=== PATIENT | male | born 1995 | race Caucasian/White ===

== ENCOUNTER 2017-04-02 17:18 | Emergency (ER) | payer OTHER ==
[2017-04-02 17:36] VITALS: TEMP 98.4; O2SAT 95
--- NOTE | 2017-04-02 18:48 | EDPHY ---
H & P Stated Complaint: hasn't slept in 6 nights Time Seen by Provider: 04/02/17 17:39 HPI/ROS: Chief Complaint: Difficulty sleeping HPI: 21-year-old male states he has been with sleeve only 1 night this week. Patient states that he attributes this to his heavy marijuana use. Patient states he uses at least 2 bowls a day. He states that he feels that when he uses marijuana he is unable to sleep. He has had difficulties with insomnia in the past. He last used marijuana 4 days ago. He did get some sleep 2 days ago but none since. Also did sleep for 2 days before that. He does have a history of anxiety and depression but denies any depression. He is not suicidal. He has not been having auditory or visual hallucinations. Has been taking larger dose of his gabapentin for anxiety recently as well. Denies any fevers or chills. No chest pain or palpitations. No nausea or vomiting. ROS: 10 point Review of Systems is negative except as noted in the HPI. PMH: 2 reds, depression, anxiety Medications: Latuda, gabapentin new line allergies: No known drug allergies Social History: Positive smoking, no alcohol, heavy marijuana use Family History: non-contributory Physical Exam: Gen: Awake, Alert, No Distress HEENT: Nose: no rhinorrhea Eyes: PERRLA, EOMI Mouth: Moist mucosa Neck: Supple, no JVD Chest: nontender, lungs clear to auscultation Heart: S1, S2 normal, no murmur Abd: Soft, non-tender, no guarding Back: no CVA tenderness, no midline tenderness Ext: no edema, non-tender Skin: no rash Neuro: CN II-XII intact, Sensation grossly intact, Strength 5/5 in bilateral upper and lower extremities - Personal History Current Tetanus Diphtheria and Acellular Pertussis (TDAP): Yes - Medical/Surgical History Hx Asthma: No Hx Chronic Respiratory Disease: No Hx Diabetes: No Hx Cardiac Disease: No Hx Renal Disease: No Hx Cirrhosis: No Hx Alcoholism: No Hx HIV/AIDS: No Hx Splenectomy or Spleen Trauma: No Other PMH: depression, tourettes - Social History Smoking Status: Current every day smoker Constitutional: Initial Vital Signs Temperature (C) 36.9 C 04/02/17 17:32 Heart Rate 109 H 04/02/17 17:32 Respiratory Rate 16 04/02/17 17:32 Blood Pressure 133/89 H 04/02/17 17:32 O2 Sat (%) 95 04/02/17 17:32 O2 Delivery Mode Room Air Allergies/Adverse Reactions: No Known Allergies Allergy (Unverified 07/29/13 14:45) Home Medications: Medication Instructions Recorded Neurontin Unkn Amt 07/29/13 Latuda 04/02/17 Zolpidem Tartrate [Ambien 10 mg] 10 mg PO HS PRN #10 tablet 04/02/17 Medical Decision Making ED Course/Re-evaluation: Patient here with insomnia likely secondary to his substance use. Will prescribe him for a few Ambien instructed to follow up with primary care physician early next week. He is stating is not believed to ambulate will work for him is asking for something stronger. I told him that I do not believe benzodiazepines or other medications are indicated at this time. I feel that he should try course of Ambien 1st before it is any other medications. Patient was wondering if Zyprexa might be an alternative. I told him that I do not feel this is appropriate as a sleep aid and that he needs to follow up with Psychiatry for this. Will write for some Ambien here and discharged with follow -up as stated. Departure - Departure Disposition: Home, Routine, Self-Care Clinical Impression: Insomnia Condition: Good Instructions: Insomnia (ED) Additional Instructions: Follow up with primary care physician in 2-3 days. I would also follow up with [facility] return treatment of your depression and anxiety. Referrals: ANABELL GRAVES [Primary Care Provider] - As per Instructions Prescriptions: Zolpidem Tartrate [Ambien 10 mg] 10 mg PO HS PRN #10 tablet PRN Reason: Sleep/Insomnia
[2017-04-02 19:08] VITALS: BP 136/85; PULSE 90; RESP 18
== END 2017-04-02 19:08 | disposition home or self-care (01) ==
DX: G47.00 Insomnia, unspecified (principal); F17.200 Nicotine dependence, unspecified, uncomplicated

== ENCOUNTER 2017-05-20 19:26 | Inpatient (IN) | payer OTHER ==
--- NOTE | 2017-05-20 19:34 | EDPHY ---
H & P HPI/ROS: CHIEF COMPLAINT: Suicidal ideation, arm laceration HISTORY OF PRESENT ILLNESS: Patient reports that he is "in too much emotional pain, and I want to . I want to go home to my family." He reports feeling this way for years. He reports attempting to harm himself this evening by getting into the shower with a kitchen knife and stabbing his left forearm. It is minimally painful. He said that prior to doing this he contacted his ex- girlfriend informing her of his plan. She apparently contacted his wildlife management professor and/or 911. EMS and [employer] responded to the patient's residence. He is transported to our facility by EMS. [employer] are completing an M1 hold for the patient. He will not provide any modifying factors for this. He says that he has felt this way for years and has voluntarily admitted himself to psychiatric care in the past. He says that he has an outpatient therapist. He will not provide any further information regarding his history of present illness. pelvic illness. M1: [employer] at 7:40 p.m. REVIEW OF SYSTEMS: Ten systems reviewed and are negative unless otherwise noted in the HPI PAST MEDICAL HISTORY: Reports previous suicide ideation and voluntary psychiatric admission SOCIAL HISTORY: Will not discuss FAMILY HISTORY: Noncontributory EXAMINATION General Appearance: Alert, no distress, tearful Head: normocephalic, atraumatic Eyes: Pupils equal and round, no conjunctival pallor or injection ENT, Mouth: Mucous membranes moist Neck: Normal inspection, supple, non-tender Respiratory: Lungs are clear to auscultation. No wheezing, rhonchi or crackles Cardiovascular: Regular rate and rhythm. No murmur. Pulses intact distally in symmetrically. Radial pulses 2+. DP pulses 2+. Gastrointestinal: Abdomen is soft and nontender Back: non-tender, no bony abnormalities Neurological: GCS 15. A&O, nonfocal, normal gait Skin: Warm and dry, no rash. There is a 2 cm superficial laceration on the distal 3rd of the left forearm, volar. This does not compromise the vascular bundle or the anterior compartment. There is no exposure of the underlying tendon, muscle or fascia. Neurovascular intact distally. Extremities: Mild tenderness over the area laceration. Full flexion extension of the wrist and fingers without deficit. Psychiatric: Mood and affect normal DIFFERENTIAL DIAGNOSES: Including but not limited to suicidal ideation, suicide attempt, depression, mood disorder, laceration MDM: 7:30 p.m. Reports of suicidal ideation. The patient is currently not talking. Continue to obtain his vitals and checked him and I will attempt to re-evaluate him. 7:55 p.m. I have evaluated the patient. He reports suicide ideation. He has a plan of cutting himself. He attempted to cut his left forearm today in the shower. He then was evaluated by [place] [employer] in EMS. He admits to this and does not want any help. 8:30 p.m. Laceration has been irrigated and repaired without complication. Laboratory studies are pending 9:50 p.m. Patient is currently being evaluated by [facility]. 11:30 p.m. Patient recently requested his nighttime medications. I did verbalize that he may take these. I am still awaiting information regarding his mental health evaluation. 12:30 a.m. Case discussed with Tierra with [facility]. She informed me that the patient has been accepted to [address] [place] [address] Wh[address]ide. They are still awaiting the final approval for transfer and nurse to nurse report. Patient remains calm and cooperative. He has received his nighttime dose of Zyprexa. 12:57 a.m. Patient has officially been accepted to [address] [place] [address] for inpatient psychiatric care. He has been accepted by Dr. Whiteside. Nurse's currently given report to the receiving nurse at [address] [place] [address] facility. PROCEDURE: Laceration repair Consent: Verbal Location: Left forearm, volar Length of repair: 2 cm Complexity: Simple Layer involvement: Single Anesthesia: Local, 1% lidocaine plain. 5 mL Irrigation: Extensive Debridement: None Procedure description: Following good anesthesia, the wound was copiously irrigated. Wound bed was explored and there is no foreign body noted. There is no compromise of the anterior compartment. There is no exposure of the fascia, muscle or flexor apparatus. Wound borders were approximated well with good hemostasis. Tolerated well without complication. Suture/Staple material: Wound care: Routine as discussed Suture/Staple removal: 7 Days SUPERVISION: Patient was evaluated in conjunction with the supervising physician. Please see their note for details. Source: Patient, RN/MD - Medical/Surgical History Hx Asthma: No Hx Chronic Respiratory Disease: No Hx Diabetes: No Hx Cardiac Disease: No Hx Renal Disease: No Hx Cirrhosis: No Hx Alcoholism: No Hx HIV/AIDS: No Hx Splenectomy or Spleen Trauma: No Other PMH: depression, tourettes - Social History Smoking Status: Current every day smoker Constitutional: Initial Vital Signs Temperature (C) 98.2 F 05/20/17 23:50 Heart Rate 95 05/20/17 23:50 Respiratory Rate 20 05/20/17 23:50 Blood Pressure 107/67 05/20/17 23:50 O2 Sat (%) 94 05/20/17 23:50 O2 Delivery Mode Room Air Allergies/Adverse Reactions: No Known Allergies Allergy (Unverified 07/29/13 14:45) Home Medications: Medication Instructions Recorded Neurontin Unkn Amt 07/29/13 Latuda 04/02/17 Zolpidem Tartrate [Ambien 10 mg] 10 mg PO HS PRN #10 tablet 04/02/17 Medical Decision Making - Data Points Laboratory Results: Laboratory Results 05/20/17 19:45 05/20/17 19:45 05/20/17 05/20/17 05/20/17 20:30 19:45 19:45 WBC RBC Hgb Hct MCV MCH MCHC RDW Plt Count MPV Neut % (Auto) Lymph % (Auto) Pine % (Auto) Eos % (Auto) Baso % (Auto) Nucleat RBC Rel Count Absolute Neuts (auto) Absolute Lymphs (auto) Absolute Monos (auto) Absolute Eos (auto) Absolute Basos (auto) Absolute Nucleated RBC Immature Gran % Immature Gran # Sodium 142 mEq/L mEq/L (134-144) Potassium 4.0 mEq/L mEq/L (3.5-5.2) Chloride 105 mEq/L mEq/L (97-110) Carbon Dioxide 20 mEq/l L mEq/l (22-31) Anion Gap 17 mEq/L H mEq/L (8-16) BUN 12 mg/dL mg/dL (7-23) Creatinine 0.9 mg/dL mg/dL (0.7-1.3) Estimated GFR > 60 Glucose 92 mg/dL mg/dL (70-100) Calcium 10.3 mg/dL mg/dL (8.5-10.4) Salicylates < 1.0 mg/dL L mg/dL (2.0-20.0) Urine Opiates Screen NEGATIVE (NEGATIVE) Acetaminophen < 10 mcg/mL L mcg/mL (10.0-30.0) Urine Barbiturates NEGATIVE (NEGATIVE) Phenytoin < 3.0 mcg/mL L mcg/mL (10.0-20.0) Valproic Acid 10.1 mcg/mL L mcg/mL (50.0-150.0) Ur Phencyclidine Scrn NEGATIVE (NEGATIVE) Ur Amphetamine Screen NEGATIVE (NEGATIVE) U Benzodiazepines Scrn NEGATIVE (NEGATIVE) Urine Cocaine Screen NEGATIVE (NEGATIVE) U Marijuana (THC) Screen NEGATIVE (NEGATIVE) Ethyl Alcohol < 10 mg/dL mg/dL (0-10) 05/20/17 19:45 WBC 14.68 10^3/uL H 10^3/uL (3.80-9.50) RBC 6.09 10^6/uL 10^6/uL (4.40-6.38) Hgb 18.3 g/dL H g/dL (13.7-17.5) Hct 50.2 % % (40.0-51.0) MCV 82.4 fL fL (81.5-99.8) MCH 30.0 pg pg (27.9-34.1) MCHC 36.5 g/dL g/dL (32.4-36.7) RDW 11.9 % % (11.5-15.2) Plt Count 251 10^3/uL 10^3/uL (150-400) MPV 10.7 fL fL (8.7-11.7) Neut % (Auto) 84.8 % H % (39.3-74.2) Lymph % (Auto) 9.3 % L % (15.0-45.0) Pine % (Auto) 5.3 % % (4.5-13.0) Eos % (Auto) 0.0 % L % (0.6-7.6) Baso % (Auto) 0.1 % L % (0.3-1.7) Nucleat RBC Rel Count 0.0 % % (0.0-0.2) Absolute Neuts (auto) 12.44 10^3/uL H 10^3/uL (1.70-6.50) Absolute Lymphs (auto) 1.37 10^3/uL 10^3/uL (1.00-3.00) Absolute Monos (auto) 0.78 10^3/uL 10^3/uL (0.30-0.80) Absolute Eos (auto) 0.00 10^3/uL L 10^3/uL (0.03-0.40) Absolute Basos (auto) 0.02 10^3/uL 10^3/uL (0.02-0.10) Absolute Nucleated RBC 0.00 10^3/uL 10^3/uL (0-0.01) Immature Gran % 0.5 % % (0.0-1.1) Immature Gran # 0.07 10^3/uL 10^3/uL (0.00-0.10) Sodium Potassium Chloride Carbon Dioxide Anion Gap BUN Creatinine Estimated GFR Glucose Calcium Salicylates Urine Opiates Screen Acetaminophen Urine Barbiturates Phenytoin Valproic Acid Ur Phencyclidine Scrn Ur Amphetamine Screen U Benzodiazepines Scrn Urine Cocaine Screen U Marijuana (THC) Screen Ethyl Alcohol Medications Given: Discontinued Medications Divalproex Sodium (Depakote) 250 mg PO EDNOW ONE Stop: 05/20/17 22:40 Last Admin: 05/20/17 23:00 Dose: 250 mg Divalproex Sodium (Depakote) 250 mg PO EDNOW ONE Stop: 05/20/17 22:46 Last Admin: 05/20/17 22:46 Dose: Not Given Olanzapine (Olanzapine) 15 mg PO ONCE ONE Stop: 05/20/17 22:39 Last Admin: 05/20/17 22:45 Dose: 15 mg Departure - Departure Disposition: [facility] IP Clinical Impression: Suicidal ideation, Suicide attempt by method other than substance overdose Laceration of forearm without complication Qualifiers: Encounter type: initial encounter Laterality: left Qualified Code(s): S51.812A - Laceration without foreign body of left forearm, initial encounter Condition: Good Referrals: Patient,NotPresent [Unknown] - As per Instructions
[2017-05-20 20:14] LABS: % IMMATURE GRANULYOCYTES 0.5 % (0.0-1.1); ABSOLUTE IMMATURE GRANULOCYTES 0.07 10^3/uL (0.00-0.10); ADD DIFF? NO; ADD MORPH? NO; ADD SCAN? NO; ATYPICAL LYMPHOCYTE FLAG 0 (0-99); FRAGMENT RBC FLAG 0 (0-99); HEMATOCRIT 50.2 % (40.0-51.0); HEMOGLOBIN 18.3 g/dL (13.7-17.5); LEFT SHIFT FLG 0 (0-99); LIPEMIA HEMOLYSIS FLAG 90 (0-99); MEAN CELL HEMOGLOBIN CONCENTR. 36.5 g/dL (32.4-36.7); MEAN CELL VOLUME 82.4 fL (81.5-99.8); MEAN PLATELET VOLUME 10.7 fL (8.7-11.7); PLATELET CLUMPS FLAG 0 (0-99); PLATELET COUNT 251 10^3/uL (150-400); RED BLOOD CELL COUNT 6.09 10^6/uL (4.40-6.38); RED CELL DISTRIBUTION WIDTH 11.9 % (11.5-15.2)
[2017-05-20 20:22] LABS: ANION GAP 17 mEq/L (8-16); CALCIUM 10.3 mg/dL (8.5-10.4); CARBON DIOXIDE 20 mEq/l (22-31); CHLORIDE 105 mEq/L (97-110); CREATININE 0.9 mg/dL (0.7-1.3); ETHANOL SERUM < 10 mg/dL (0-10); GLOMERULAR FILTRATION RATE > 60; GLUCOSE 92 mg/dL (70-100); SALICYLATE < 1.0 mg/dL (2.0-20.0); SODIUM 142 mEq/L (134-144)
[2017-05-20] MEDS ORDERED: OLANZapine 10 MG/2 ML VIAL IM ONE (21:56)
[2017-05-20] MEDS ORDERED: OLANZapine 5 MG TAB ONE (22:36)
[2017-05-20] MEDS ORDERED: OLANZapine 5 MG TAB PO ONE (22:38)
[2017-05-20] MEDS ORDERED: DIVALPROEX NA 500 MG TAB PO ONE (22:39)
[2017-05-20] MEDS ORDERED: DIVALPROEX NA 250 MG TAB PO ONE (22:45)
[2017-05-21] MEDS ORDERED: ACETAMINOPHEN 325 MG TAB PO PRN (02:15)
[2017-05-21] MEDS ORDERED: MAGNESIUM HYDROXIDE 30 ML UDCUP PO PRN (02:15)
[2017-05-21] MEDS ORDERED: MAG HYDROX/AL HYDROX/SIMETH 30 ML UDCUP PO PRN (02:15)
[2017-05-21] MEDS ORDERED: LORazepam 0.5 MG TAB PO PRN (02:15)
[2017-05-21] MEDS ORDERED: OLANZapine 5 MG TAB PO PRN ×2 (02:16→12:53)
[2017-05-21] MEDS ORDERED: GABAPENTIN 100 MG CAP PO ONE (12:51)
[2017-05-21] MEDS ORDERED: GABAPENTIN 400 MG CAP PO ONE (14:15)
[2017-05-21] MEDS: LORazepam 0.5 MG TAB PO PRN ×2 (14:34→21:39)
[2017-05-21] MEDS: NICOTINE POLACRILEX 2 MG GUM B PRN ×4 (14:35→20:50)
--- NOTE | 2017-05-21 15:52 | BAPA ---
[f rep st] ADMISSION PSYCHIATRIC ASSESSMENT DATE OF SERVICE: 05/21/2017 CHIEF COMPLAINT: "I've been having a lot of emotional problems. I hate myself." HISTORY OF PRESENT ILLNESS: Patient is a 21-year-old single student, man, brought initial ly to [facility] by ambulance after the patient informed his parents, director life sciences and therapist he had cu t himself with a kitchen knife. [employer] was called to do a welfare check. An officer placed him on an M1 hold which noted patient "reportedly texted his director life sciences threatening to cut himself with a knif e. We (the police) contacted the patient inside the house. He had sustained a knife wound to the i nside of his left wrist. The patient said he cut himself with a kitchen knife." Patient reported " I had a suicidal episode today. I have been struggling, not with a specific mental health issue, ju st my own set of complexes which have been at a low vibration. Today I thought to myself, why do th is another moment. I can get high and kill myself. I wrote a note explaining I am in a lot of pain . Recently the pain is due to a breakup but it was already bad. The breakup exacerbated the pain. We broke up 3 months ago and she is already seeing another vic. I inflamed my ability to attempt s uicide by looking at social media. I smoked a good share of marijuana, got in the shower and cut my self with a kitchen knife. I talked to my ex which made it worse and she thought it was for manipul ation. I told my parents, director life sciences and therapist I cut myself. Dad called and I had a huge break down and sort of stopped because I didn't have the courage to continue. It is the fractal fucking p erspective of taking my life when all I know is life and that I am alive. I am alive in the world a nd this kept me holding on even though I wished I were . I had a hard time before the breakup d ue to trauma in the relationship. There were patterns of dependency on weed and cigarettes. For a long long time I have been totally miserable. There has been a giant sleeping bear on the panic but ton. It activated depression. I do not have mood swings. I just hold on strong to the pain and martinez ve been tortured since I was 2 years old. Early on I had panic attacks, anxiety, and dark periods. This was through middle school. Now it is the emotion of pain, not really even depression. It is not something that is usual. It is restless, agonizing pain." PAST PSYCHIATRIC HISTORY: Patient states that he has had emotional pain since he was 2 years old. He states that his childhood was "rough, but only on the inside, the circumstances were good." He s ays that he had a lot of "anger and torment, I hated myself and was incredibly socially anxious." Clive is first contact with mental health providers was in 2012. He was living in [place], [place], and he was doing residential treatment through [facility] for approximately 10 days and then he became lira icidal and he was admitted to [facility]. When he was discharged from [facility] he says that his parents sent him to a residential treatment facility called [facility] in [place] where he stayed for about 5 months and then he went to a stepdown program [facility] in [place], [place], where he lived for about 6 months. He says after he g ot out of residential treatment he went to [facility] and lived for approximately a year. He said he wa s a student enrolled in different programs in [place]. He was seeing a psychiatrist there. At that time, he was prescribed Wellbutrin, Prozac and Zyprexa but he cannot remember what the specific symp toms were that he was taking the medications for. He says that when he came back to [place] in [place], he went to [facility] in [place], [place], to try to finish getting his undergr aduate degree but says that he was smoking a lot of weed and drinking a lot and that he was not doin g well in school and his parents decided they did not want to continue to pay for his tuition so he moved back to [facility] where his family lives and where he grew up and he got involved wit clive an ex girlfriend and they decided to move to [place], [place], together. He says that they went to [place], [place], and he says that he had one psychiatric episode where he reported experiencing "odd sy mptoms." He said that he was hospitalized in the psychiatric [facility] for 3 days. He said that the odd symptoms he was experiencing were that he was "meditating strangely while he was high on marijuana. " Patient states that he was having "energetic pains in my solar plexus." Patient admits that he w as continuing to smoke pot daily and in quite large amounts and that he was drinking "a lot." Laineyjesika emilee then says that he and his girlfriend moved back to [place], [place], where they lived for several mo nths until they both decided to move to [place], [place], in September of 2016. He said shortly aft er they arrived in [place], [place], he and his girlfriend . He says that this has been o ne of the biggest sources of "emotional pain for a long time." Patient started seeing a therapist padilla coffman he had formerly met at [facility], who he now sees as a private therapist and then he a lso started seeing Amadou Munoz who is his director life sciences and he started seeing Dr. Laurence Thornton and that she has been prescribing for him for approximately the last 5 months. He says that when clive canchola arrived in [place], [place], he was on Risperdal prescribed by his psychiatrist in [facility] . He said that he cannot remember why he was taking the Risperdal but said that he felt like it "st opped working." Dr. Thornotn started him on Depakote and Zyprexa. When MD asks the patient why he t akes those medications, patient says "its for sleep." MD explained that those are both mood stabili zers and that one is an antipsychotic and went through in great detail the risks, benefits and side effects of these medications, including the very serious side effects including hepatic failure, agr anulocytosis, neutropenia as well as the second generation atypical antipsychotic can cause cardiac arrhythmias as well as abnormal involuntary muscle movements, EPS symptoms including tardive dyskine jovany, and MD explained that those were medications that were used for people with serious mental illn ess including bipolar disorder and psychotic disorders including schizophrenia and schizoaffective d isorder. The patient adamantly denied that he had any of those conditions. Denied that he had ever experienced a manic episode. Denied that he had ever been psychotic except when high on marijuana, he denied ever having hallucinations. He denied paranoia except when smoking pot and he denied imp aired reality testing or extreme disorganized thinking. He insisted that he only took those medicat ions for sleep even though he is on a fairly high dose of Zyprexa. He takes 15 mg of Zyprexa every night to go to sleep. He also says that he takes 3000 mg of Neurontin all at the same time. When Eva Goodman explained that that is not typically how that medication is prescribed and said that there are praveen e risks involved with taking such high doses of the medication, patient states that that does not eliana ther him and he said "I need that medication for my anxiety." Patient has been on those medications for at least the last several months and denies that there have been any recent medication changes. MD explained to patient that Neurontin can be used off label for insomnia but that the max recomme nded daily dose is 1800 mg. Patient seemed not to be surprised by this information but denied that he had any concerns and stated that these medications are helpful for him and he wanted to continue on his current outpatient regimen even though MD expressed some reservations both about their effect iveness given the symptomatology that the patient describes as well as the severe side effects and r isks of adverse reactions. Patient denies any prior history of suicide attempts. He states that he has had thoughts in the past but he states he never acted on them. He said that the first time he had ever actually followed through on one of his thoughts was the evening prior to admission when he did make a superficial laceration on his wrist which required 3 sutures. Patient says that he woul d not have had the courage to go through with it if he had not been high at the time. ALLERGIES: The patient states that he has no known drug allergies. CURRENT MEDICATIONS: Include Depakote 250 mg p.o. q.h.s., patient states for insomnia. Zyprexa 15 mg p.o. q.h.s., patient states for insomnia. Neurontin, patient states that he takes 5 tablets of 6 00 mg all at the same time daily in the a.m. for anxiety. PAST MEDICAL HISTORY AND SURGICAL HISTORY: Patient told TLC flare maker that he has had 2 spleen lace rations; one occurred in 2008 and the other occurred in 2010. Patient denied having any prior medic al history or surgical procedures to the ED MD and he also denied any past medical history to the ps ychiatrist. He denied any history of concussions or TBI and said that he had his wisdom teeth taken out but no other surgical procedures. SOCIAL HISTORY: Patient lives in his own apartment here in [place]. He states that his girlfriend who he broke up with several months ago also lives here in [place] but that they have not been in co ntact he said since he texted her last night to let her know that he was going to cut himself. His parents live in [facility] [place] [facility] [place]. 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 SUBSTANCE USE HISTORY: Patient reports that his first use of alcohol and marijuana was around the a ge of 13 or 14 years old. He said that he started smoking pot daily in 2012, and he states that he would smoke approximately 2 grams a week. He states that he used to abuse Adderall for approximatel y 3 years between 2011 and 2014. He took it to get high. He reports that he also started drinking when he was 13 years old. He said that he started drinking heavily around 2011, 2012 and he says th at he used to drink "a lot" but he would not give any specific amounts or frequency. He said that clive canchola has stopped drinking for about the last 1 to 2 years but states that on occasion he has been drunk during that time so it is not clear what he means when he says that he quit. FAMILY HISTORY: Patient denies any family history of mental illness. He also denies any awareness of any substance abuse issues in his family. ADMISSION LABS: On admission, the patient had a white cell count of 14.68, a hemoglobin 18.3, hemat ocrit was 50.2, platelet count was 251. His sodium level was 142, potassium was 4.0, chloride was 1 05, BUN was 12, creatinine was 0.9. His urine drug screen was negative for all drugs of abuse. His alcohol level was less than 10. His Depakote level was 10.1 which would be expected to be low sinc e he is on such a low dose of medication, it is not really therapeutic. He states he only takes the medication for insomnia anyway. His acetaminophen and salicylate levels were undetectable. MENTAL STATUS EXAMINATION: This is an overweight male lying in bed in hospital scrubs. He is sligh tly disheveled. His hair is unkempt and he has a several day growth of feliz. He interacts appropr iately with the examiner. He is somewhat guarded at first. He seems very calm and placid lying in bed. He is not restless or fidgeting even though later on he states that he is feeling anxious and wants additional medications and asked for benzodiazepines by request although he gives no signs or symptoms outwardly observable of being anxious in any way, shape or form. Patient's affect is flat. His mood he says is "okay" although he says recently he has been in a lot of "emotional pain." Hi s thought process is linear and goal directed. His thought content: Patient denies any auditory an d visual hallucinations. There is no evidence of paranoia or delusions. There are no evident signs or symptoms of psychosis. He denies any thoughts, plans, or intent to hurt himself or harm anyone else at the current time. He is alert and oriented x4. His intellect is average based upon his edu cational history as well as his fund of knowledge and his vocabulary. His insight and judgment are both fair. IMPRESSION: This is a 21-year-old man with an extensive psychiatric history of long-term residential treatment for a combination it sounds like of substance use disorder issues as well as a n inability to function. His inability to function does not seem to be directly attributable to any psychotic disorder. He denies and does not report any signs or symptoms of having had a manic epis ode in the past. He does seem to be chronically dysthymic, displeased with himself. He admits "I h ate myself." He also says he has lots of "complexes" and unresolved issues that seem to stem from h is childhood and he does seem to have failure to accomplish his goals. He has struggled to complete his undergraduate degree and he seems also to have suffered consequences of prolonged substance use which have both impaired his ability to perform academically as well as interfered with his ability to maintain social relationships. He admits that he is socially awkward and somewhat developmental ly delayed in terms of his social and emotional development. He has trouble interacting with peers and maintaining relationships. It seems that these are more personality traits than they are signs or symptoms of a chronic severe mental illness. Patient does have a significant substance use histo ry as noted previously. DIAGNOSES: 1. Dysthymia. 2. Substance-induced mood disorder. 3. Cannabis use disorder, severe, dependence. 4. Alcohol use disorder, severe, dependence. 5. Psychosocial issues include strained relationship with parents, recent breakup with his girlfrie nd which he says continues to be "emotionally painful for him," failure to perform well in school, f inancial problems. He is being supported by his parents. He is unemployed. He is socially isolate d and has a limited support network. PLAN: 1. Admit to the behavioral health services inpatient unit on an M1 hold. 2. Monitor closely for safety and on suicide precautions. 3. Will continue patient's outpatient medication regimen despite MD's reservations. This MD has ex plained the risks, benefits and side effects including the long-term potential adverse effects of us ing Depakote and Zyprexa, particularly since the patient states that he is only taking them for inso mnia. MD has explained that he does not think that the benefit of taking those medications warrants the risks involved but patient states that he understands the risks and is willing to take those me dications and states that they have been helpful for him in the past and he wants to continue on his current regimen. This MD since we do not have the single daily dose version of gabapentin, I will prescribe the immediate release version which is normally prescribed 3 times a day even though the p atient takes 5 pills once daily. Given our formulary, I will change that to 800 mg p.o. t.i.d. and he can resume the 3000 mg dose that he takes after discharge although MD has strongly encouraged him to follow the appropriate FDA guidelines as it seems that he is being prescribed this medication at supratherapeutic doses and for off label uses. Patient said that he would take that up with his ou tpatient psychiatrist, Dr. Thornton, after he is discharged. 4. Patient will engage in individual, group and milieu psychotherapies. 5. Estimated length of stay is 3 to 5 days. 6. guest relations coordinator will meet with the patient and attempt to reconnect him with his outpatient pro viders who are extremely invested in the patient's treatment. Both his director life sciences as well as his in dividual therapist came to meet with him when he was in the emergency department. Patient's outpati ent psychiatrist, Dr. Thornton, is out of town for approximately 2 weeks but Sebastian Laird and Amadou Zabala son have both said they would be willing to work the patient into their schedule as soon as he is di scharged. /[id number]/MODL
[2017-05-21] MEDS: GABAPENTIN 400 MG CAP PO SCH ×2 (16:20→21:40)
[2017-05-21] MEDS: OLANZapine 10 MG TAB PO SCH (21:39)
[2017-05-21] MEDS: DIVALPROEX NA 250 MG TAB PO SCH (21:40)
--- NOTE | 2017-05-21 21:57 | BCON ---
[f rep st] BEHAVIORAL HEALTH CONSULTATION DATE OF CONSULTATION: 05/21/2017 REFERRING PHYSICIAN: Denny Whiteside MD REASON FOR REFERRAL: Medical clearance for inpatient behavioral health stay. HISTORY OF PRESENT ILLNESS: The patient came to the emergency department by EMS. He had engaged in self-injurious behavior with a laceration to his left forearm using a kitchen knife. He had informed his girlfriend, as well as his fish and wildlife scientific aid, and the [email or web address] police had been called. He was evaluated by the mental health team and admitted for further psychiatric care. He currently complains of being tired. Otherwise he has no acute complaints. PAST MEDICAL HISTORY: 1. Depression. 2. Irritable bowel syndrome. PAST SURGICAL HISTORY: Prior to his current laceration repair, he has not had previous surgeries. MEDICATIONS: He was prescribed gabapentin, valproic acid and olanzapine. ALLERGIES: No known drug allergies. SOCIAL HISTORY: He lives with roommates. He is not currently in school. 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 He is not working. He is a tobacco smoker. FAMILY HISTORY: Noncontributory. PHYSICAL EXAMINATION: VITAL SIGNS: Blood pressure 115/58, heart rate is 92, respiratory rate is 16, oxygen saturation is 96% on room air, temperature is 36.8 degrees centigrade. His weight is 77.1 kg for a body mass index of 25.1. GENERAL: This is a well-nourished, well-developed, somewhat unkempt man who appears his chronologic age, cooperative, and in no acute distress. HEENT: Extraocular movements are intact. Pupils are equal, round, reactive to light. Mucous membranes are moist. Dentition is in good condition. He has a somewhat crowded airway, Mallampati class 3. NECK: Supple. HEART: There is regular rate and rhythm. No murmurs, rubs or gallops. LUNGS: Clear to auscultation bilaterally. ABDOMEN: Soft, nontender, nondistended with normoactive bowel sounds. EXTREMITIES: There is no cyanosis, clubbing, or edema. SKIN: There is approximately a 2 cm laceration on the left volar forearm that has been sutured. It is clean, dry and intact with scant eschar along the laceration. NEUROLOGIC: He is alert and oriented x3. Cranial nerves 2-12 are grossly intact. There is no focal weakness and sensation is intact to light touch. LABORATORY STUDIES: Drawn in the emergency department: CBC showed an elevated white blood cell count at 14.68. His hemoglobin was mildly elevated at 18.3. There was no left shift. Serum chemistry revealed a slightly low carbon dioxide at 20 and a corresponding elevated anion gap at 17. Otherwise, renal function and electrolytes were within normal limits. Toxicology screen in the serum was negative for salicylates, acetaminophen or ethyl alcohol. He an undetectable level of phenytoin. Valproic acid was subtherapeutic for seizure disorder at 10.1. Urine drug screen was negative for any substances of abuse. On further review of laboratory studies, he had a normal TSH in December of this year. ASSESSMENT/RECOMMENDATIONS: 1. Mental health issues, pending further evaluation and management per Psychiatry and the mental health team. 2. Laceration, status post repair in the emergency department. No signs or symptoms of infection. 3. Tobacco dependence syndrome. Advised tobacco cessation. 4. Irritable bowel syndrome, asymptomatic at present. 5. Weight loss. With normal TSH in December, this is most likely due to his psychiatric condition. If depression is treated and he continues to lose weight , then further investigation would be warranted. This can be done as an outpatient. I see no medical contraindications to this patient's continued stay on the inpatient behavioral health unit or to any psychiatric medications or procedures. Thank you very much for including me in the care of this patient and please do not hesitate to contact me or the hospitalist service should there be need for further medical evaluation. /[id number]/MODL MTDD
[2017-05-22 06:58] VITALS: PULSE 55; RESP 14; TEMP 97.7
[2017-05-22] MEDS: GABAPENTIN 400 MG CAP PO SCH ×3 (09:01→21:51)
[2017-05-22] MEDS: NICOTINE POLACRILEX 2 MG GUM B PRN ×8 (12:40→22:32)
[2017-05-22] MEDS: LORazepam 0.5 MG TAB PO PRN ×2 (14:53→21:54)
--- NOTE | 2017-05-22 20:42 | SOAPPROG ---
SOAP Progress Note Assessment/Plan: Assessment: Plan: 05/22/17 20:41 Appears to have reconstituted. Will CCM, anticipate d/c tomorrow to ongoing outpt treatment plan. Subjective: Pt seen, discussed with staff. Slept in until noon, refusing goals group, ten o 'clock group, eleven o'clock group and lunch. Pleasant and interactive with me. Adamantly denies any true SI.. States he feel supported by "a really solid outpatient treatment team." Parents present and supportive. Objective: Vital Signs Temp Pulse Resp BP Pulse Ox 36.5 C 55 L 14 92/49 L 96 05/22/17 06:57 05/22/17 06:57 05/22/17 06:57 05/22/17 06:57 05/22/17 06:57 MSE: Calm, coop. Affect is euthymic, stable, approp. Mood is "good." TP llinear. TC reveals no psychosis. Denies acitve SI. - Time Spent With Patient Time Spent With Patient: 15" ICD10 Worksheet Patient Problems: Problems Problem Status Onset Laceration of forearm without complication Acute Suicidal ideation Acute Suicide attempt by method other than substance overdose Acute
[2017-05-22] MEDS: OLANZapine 10 MG TAB PO SCH (21:51)
[2017-05-22] MEDS: DIVALPROEX NA 250 MG TAB PO SCH (21:51)
[2017-05-23 06:30] VITALS: BP 101/51; O2SAT 95
[2017-05-23] MEDS: GABAPENTIN 400 MG CAP PO SCH ×2 (11:09→16:13)
[2017-05-23] MEDS: NICOTINE POLACRILEX 2 MG GUM B PRN ×4 (12:33→17:45)
--- NOTE | 2017-05-23 21:02 | BDS ---
[f rep st] BEHAVIORAL HEALTH DISCHARGE SUMMARY ADMISSION DIAGNOSES: 1. Dysthymic disorder. 2. Substance induced mood disorder. 3. Cannabis use disorder, severe, dependence. 4. Alcohol use disorder, severe, dependence. 5. Psychosocial issues including strained relationship with parents, recent break-up with girlfriend, failure to perform well in school, financial problems. Currently supported by parents financially, unemployed, socially isolated and limited social support. DISCHARGE DIAGNOSES: 1. Adjustment disorder with mixed disturbance of emotions and conduct, acute. Rule out unspecified depressive disorder, rule out bipolar and related disorders , rule out substance-induced mood disorder. 2. Chronic Dysthymic Disorder 3. Cannabis use disorder, unspecified. 4. Alcohol use disorder, unspecified. 5. Nicotine use disorder, moderate 6. Anxiolytic use disorder, unspecified 7. Chronic psychosocial stressors as noted above. HISTORY OF PRESENT ILLNESS: Patient is a 21-year-old, male, who was brought to the [facility] emergency room on 05/20/2017 status post arm laceration, self-induced with suicidal ideation following break-up with girlfriend. Patient reported he was in emotional pain and wanted to , and reported attempting to harm himself on the evening prior to admission by getting into the shower with a kitchen knife and cutting on his left forearm. He reports he received 3 stitches. Prior to doing this, he contacted his ex- girlfriend informing her of his plan, who apparently contacted EMS. He was transported to [facility] for evaluation and treatment. Patient was medically cleared, evaluated subsequently by psychiatric services and determined to be in need of inpatient hospitalization psychiatrically for stabilization and safety. He was placed on a 72-hour mental health hold and admitted to [address] [place] [address]. HOSPITAL COURSE: 1. Psychiatric: Patient was restarted on previous home medications of Depakote , Zyprexa and gabapentin. His home medication of Zyprexa 15 mg p.o. at bedtime was continued, Depakote was restarted at 250 mg p.o. at bedtime although it was subsequently learned that his outpatient dose was 500 mg p.o. at bedtime. Patient on admission reported that he had been only taking 250 mg at bedtime for the past 2 weeks although this was not his outpatient dose, and Depakote level in the emergency department was 10. His outpatient gabapentin dose is 600 mg p.o. 5 times per day. Again, patient reports taking between 6105-7851 mg once daily. Apparently he has a history of abusing this medication, so it has been prescribed on a weekly basis to be refilled once per week and not more often or in a greater amount at a time. Additionally, patient admitted to taking Neurontin approximately 3000 mg daily, every morning at one time. He reports this is how he prefers to take this medication as it helps with his anxiety at this high dose. His outpatient psychiatrist was out of town for 2 weeks so she was not able to be reached for collateral. Admitting psychiatrist extensively educated patient on the risks and benefits of taking his medications especially without clear indication of psychosis or bipolar disorder history as reported by patient, since patient reports taking current prescribed medications only for sleep and denied any psychotic or bipolar disorder symptom history. During hospital course, patient had no acute behavioral issues, there were no attempts of self-harm. Parents flew down from [place] and were very supportive , helping formulate a plan for after discharge. On evaluation on the day of discharge, patient stated that he was here because "I had a parasuicidal moment , it was a cry out for help, I slashed myself in the shower with a knife because of the internal pain precipitated by difficult break up." He states he and his girlfriend were together for 1 year and 7 months but they had broken up 3 months ago and apparently patient learned recently that she was seeing someone else. He also admitted that prior to attempt he smoked a lot of marijuana. Patient was able to state that he was experiencing a "dark moment" at that time, and states now "I have hope now with this program." Patient reports he is on board with plan for transition to a [facility] treatment program called [facility]. This is a minimum 5 week program, longer if necessary. He states he does have some reservations regarding his ability to sleep in the wilderness and that the treatment day would be long, getting up at 7 a.m. 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 He denied any suicidal ideation consistently when asked. He did admit to a long history of on and off experiencing suicidal ideation since 6th grade with no history of plan or intent until recently. He does recognize substance abuse issues, feeling that heavy marijuana use induces insomnia and having had a history of alcohol problems in the past. He does have a history of self injury , having some old superficial scars on the left upper arm, again admitting doing so when in emotional distress in the past. He reports motivation for treatment and sobriety. He does report relationship with his parents has been strained because of all the stressors he has been through and the stress he has put them through, but he feels that it is " getting better." He denied any suicidal ideation, and does not feel like he needs to stay in the hospital beyond his 72-hour mental health hold which expires around 1800 on . Options were discussed including signing in as a voluntary patient and staying until tomorrow after which he can leave directly in the morning with his parents to the airport to go to this program. Patient declined to stay as a voluntary patient. He prefers to be discharged at the end of his hold. There was no clinical indication to keep him beyond his hold, or to certify him as he was not felt to be acutely at risk of danger to himself or others or gravely disabled. He was in regular communication with his parents, father came prior to discharge to review program requirements and have him sign paperwork and thoroughly go over the expectations of the program to ensure patient is willingly attending the program and motivated for treatment there. Patient did sign all the paperwork and also talked with a staff person at the program who answered any questions he may have had. Plan was made for patient to be discharged to the care of his parents at the time of hold expiration. Mother contacted program to find out about medications , and their request was for a 30 day supply of medication with 1 refill to be provided to the program. There is a psychiatrist at this program, and patient will be seeing psychiatrist for medication adjustments and follow up after discharge. It was recommended the patient try to see the psychiatrist this week to begin establishing psychiatric care and review his medications. 2. Substance use: Patient has an extensive substance use history as noted also in admission psychiatric assessment. Please refer to this for more details. Alcohol and marijuana have been drugs of choice, more recently just heavy marijuana use with occasional drinking since then. Also history of abuse of Adderall between 2011 in 2015. Also more recently, admission to abusing Neurontin by taking more than prescribed. Patient also smokes cigarettes regularly. He has been receiving nicotine gum hourly p.r.n. while on inpatient unit. As noted, he will be discharged with plans to attend a residential [facility] treatment program. 3. Safety: As noted patient denied any suicidal ideation and expressed future oriented thinking on day of discharge. He did acknowledge chronic suicidal ideation on and off for many years and did state that his suicide attempt was not while intoxicated or high. He denies feeling suicidal, and he did not make any attempts to harm himself throughout his stay in the hospital. He is future oriented and recognizes that his recent attempt to harm himself was related to emotional pain still surrounding the loss of his girlfriend which he felt was a more serious relationship than he had been in in the past. He seems to have chronic low self-esteem issues, has told the psychiatrist on admission that he had a lot of "complexes" and unresolved issues that seemed to stem from childhood, and has concerns about failure to accomplish his goals. Also told admitting psychiatrist that he hated himself and struggles with chronic dysthymia. It did not seem clear that he had a history of bipolar, manic or psychotic episodes so his current medication regimen is questionable for his reported symptoms. This will need to be further assessed in the context of a significant period of sobriety and again necessitates the ongoing follow up with outpatient psychiatry after discharge for medication management and stabilization. DISCHARGE MENTAL STATUS EXAM: On discharge, patient was casually dressed, neatly kempt, good eye contact, unshaved, alert and oriented x3 with normal speech rate and volume. Articulate. Engaging in conversation. Mood was "better." Affect was controlled and euthymic, slightly anxious with concerns of prolonged hospitalization, but when informed of discharge, affect was brightened, euthymic, full range and appropriate. He consistently denied any suicidal ideation and he also denied any thoughts to harm others. He denied any psychotic symptoms, no paranoia or auditory hallucinations. He did not appear to be responding to any internal stimuli. Thought processes were linear and goal directed, future oriented. Intellect seemed average as did fund of knowledge. Insight and judgment were both fair to good. DISCHARGE PLAN: -Patient will be discharged to the care of his parents at expiration of 72-hour mental health hold on 05/23/2017 around 6 p.m. Prescriptions were called into [facility] as requested by the parents who will brass pickler meds before pharmacy closes. . Father will brass pickler prescriptions and return to the unit prior to patient discharge. Father plans to keep prescriptions and be in charge of dispensing them to the patient as directed, given patient's history of substance use and overuse of medication. Medications will then be delivered by father directly to staff at [facility] tomorrow evening upon their arrival. -Flight is arranged for tomorrow late morning for both father and patient to fly out of the airport to go to this program. Mother will be returning to [place]. She has been in contact with outpatient providers and both parents have facilitated this disposition with patient in agreement with the plan. Patient does have local psychiatric providers with whom he is involved, and plan will be for him to continue with them after discharge and after completion of this program for dual diagnosis in the [facility]. -It is recommended that the patient meet with a psychiatrist at [facility] sometime this week, or as soon as possible after arrival to establish care and evaluate medications. -Of note, patient reported taking only 250 mg nightly of Depakote over the past 2 weeks instead of prescribed 500 mg nightly. Both these doses are felt likely subtherapeutic and so benefit is unclear, and it is hoped that while patient remains sober in this program, treating psychiatrist will be able to determine whether the patient needs to continue on this medication and increase to a therapeutic level or discontinue this medication altogether and evaluate for alternative medication for patient's history of mood disorder, which he reports has been primarily depression, although would consider bipolar spectrum versus substance-induced. -Also given his substance abuse history and history of overuse of Neurontin with being on weekly prescriptions, resuming such dispensing upon return to [place] needs to be considered and coordinated with his [place] treatment providers if still indicated at that time. DISCHARGE MEDICATIONS: Zyprexa 15 mg p.o. at bedtime, gabapentin 800 mg p.o. three times daily #90 with 1 refill and Zyprexa #30, 1 refill, Depakote ER 250 mg 2 p.o. at bedtime #60, 1 refill. Medications were called into [facility] as noted above. Other medications at [facility] were discontinued including outstanding prescription for trazodone from April which he does not take. /[id number]/MODL MTDD
--- NOTE | 2017-05-23 21:12 | SOAPPROG ---
SOAP Progress Note Assessment/Plan: Assessment: Plan: Objective: Vital Signs Temp Pulse Resp BP Pulse Ox 36.5 C 55 L 14 101/51 L 95 05/23/17 06:28 05/23/17 06:28 05/23/17 06:28 05/23/17 06:28 05/23/17 06:28 ICD10 Worksheet Patient Problems: Problems Problem Status Onset Laceration of forearm without complication Acute Suicidal ideation Acute Suicide attempt by method other than substance overdose Acute
== END 2017-05-23 18:20 | disposition home or self-care (01) | DRG 881 ==
LOC: EDUNIT# → BBEH 05-21 02:05
PROVIDERS: ADMIT Specialist; ATTEND Specialist
PROC: 0HQEXZZ Repair Left Lower Arm Skin, External Approach (ICD-10-PCS; principal; 2017-05-21)
DX: F43.21 Adjustment disorder with depressed mood (principal); S51.812A Laceration without foreign body of left forearm, initial encounter; X78.1XXA Intentional self-harm by knife, initial encounter; Y92.002 Bathroom of unspecified non-institutional (private) residence as the place of occurrence of the external cause; F17.210 Nicotine dependence, cigarettes, uncomplicated; F12.20 Cannabis dependence, uncomplicated; F10.20 Alcohol dependence, uncomplicated; F95.2 Tourette's disorder; K58.9 Irritable bowel syndrome, unspecified; R63.4 Abnormal weight loss
CPT/HCPCS: 80305; G0480